=== PATIENT | female | born 2000 | race Caucasian/White ===

== ENCOUNTER → 2021-07-31 | Emergency (ER) | payer OTHER ==
[~2021-07-31] MED LIST: ACETAMINOPHEN 500 MG TABLET (FP) ONE; IBUPROFEN 600 MG TABLET (FP) PO ONE
[2021-07-31 19:36] VITALS: BP 119/86; PULSE 109; TEMP 98.1; BMI 21.9
== END | disposition left against medical advice (07) ==
LOC: JER 19:13
DX: R05.1 Acute cough (principal); J02.9 Acute pharyngitis, unspecified
CPT/HCPCS: 99281-25